=== PATIENT | male | born 1940 | race Caucasian/White ===

== ENCOUNTER → 2018-06-23 | Outpatient (CLI) | payer MEDICARE, BC | END | disposition home or self-care (01) | LOC: RADUSWWP 11:50 | PROVIDERS: ATTEND Physical Medicine & Rehabilitation | DX: S13.4XXD Sprain of ligaments of cervical spine, subsequent encounter (principal); M51.17 Intervertebral disc disorders with radiculopathy, lumbosacral region; M47.27 Other spondylosis with radiculopathy, lumbosacral region; M96.1 Postlaminectomy syndrome, not elsewhere classified; G89.11 Acute pain due to trauma; R53.1 Weakness | CPT/HCPCS: 93922 ==

== ENCOUNTER → 2018-07-28 | Outpatient (CLI) | payer MEDICARE, BC ==
[2018-07-28 15:50] LABS: HCT 41.4 % (39.0-53.0); HGB 13.5 gm/dL (13.0-17.5); MCH 29.6 pg (25.0-35.0); MCHC 32.7 g/dL (31.0-37.0); MCV 90.6 fL (80.0-100.0); Mean Platelet Volume 6.7; Platelet Count 277 k/uL (150-450); RBC 4.57 m/uL (4.30-5.90); RDW 15.8 % (11.5-15.5)
[2018-07-28 16:00] LABS: Anion Gap 11 mmol/L; Blood Urea Nitrogen 25 mg/dL (9-20); Carbon Dioxide 24 mmol/L (22-30); Chloride 104 mmol/L (98-107); Potassium 4.8 mmol/L (3.5-5.1); Sodium 139 mmol/L (137-145)
== END | disposition home or self-care (01) ==
LOC: LABPAT 15:19
PROVIDERS: ATTEND Internal Medicine Interventional Cardiology
DX: Z01.812 Encounter for preprocedural laboratory examination (principal); I70.213 Atherosclerosis of native arteries of extremities with intermittent claudication, bilateral legs
CPT/HCPCS: 36415; 80051; 82565; 84520; 85027

== ENCOUNTER → 2018-08-11 | Day surgery (SDC) | payer MEDICARE, BC ==
[2018-08-08 15:05] VITALS: BMI 35.4
[~2018-08-11] MED LIST: ALPRAZolam 0.25 MG TAB PO PRN; ASPIRIN 325 MG TAB PO STA; HEPARIN SODIUM 1,000 UN/ML (10ML VL) IV ONE; IOPAMIDOL-250 100ML BTL INTRAARTER ONE; IOPAMIDOL-250 50ML BTL INTRAARTER ONE; MIDAZOLAM 2 MG/2 ML VIAL IVP ONE; SODIUM CHLORIDE 0.9% 1,000 ML IV ONE; SODIUM CHLORIDE 0.9% 1,000 ML IV SCH; SODIUM CHLORIDE 0.9% 1,000 ML in EMPTY BAG 1 BAG IV ONE
[2018-08-11 11:38] VITALS: RESP 16; TEMP 98
[2018-08-11] MEDS: LIDOCAINE 1% INJ 10MG/ML (20 ML MDV) SQ ONE ×2 (12:52→12:55)
[2018-08-11] MEDS: VERAPAMIL SYRINGE (5 MG/10 ML) INTRAARTER ONE ×2 (12:55→13:13)
--- NOTE | 2018-08-11 14:33 | AN ---
ANGIOGRAPHY REPORT ABDOMINAL AORTOGRAM AND BILATERAL LOWER EXTREMITY RUNOFF: DATE OF SERVICE: 08/11/2018 PERFORMING PHYSICIAN: Bobby Phillips MD, [employer]. PROCEDURE PERFORMED: 1. An abdominal aortogram. 2. Bilateral lower extremities runoff. INDICATION: This is a pleasant 78-year-old gentleman who was referred for further evaluation of peripheral arterial disease. The patient was experiencing bilateral lower extremities intermittent claudication, severe enough and interfering with his daily activities. The SAMARIA was performed and came into be but abnormal bilaterally. Because of that an abdominal aortogram and bilateral lower extremities runoff was advised. APPROACH: Right radial artery. COMPLICATION: None. LEVEL OF SEDATION: Moderate sedation length of 35 minutes. PROCEDURE DESCRIPTION: After obtaining an informed consent, the patient was brought to cardiac cork slabs sawyer. The right radial artery was cannulated using micropuncture technique and a micropuncture wire passed easily then I placed a 5-Belizean sheath in the right radial artery. After that, I did an abdominal aortogram and bilateral lower extremities runoff using 5- Belizean pigtail catheter was initially placed at the level of the 24-Belizean pigtail catheter which was placed initially at the level of the renal arteries then it was advanced as much as possible to above the bifurcation of the aorta. The procedure was completed without any complication. SELECTIVE PERIPHERAL ANGIOGRAM: 1. The aorta does have a stent graft, which seems to be patent. 2. ILIAC ARTERIES: The right limb of the stentograft is occluded. It reconstitutes by the external iliac artery on the right side. The left limb is patent. 3. EXTERNAL ILIAC ARTERIES: The right external iliac artery is occluded and the left external iliac artery is patent. 4. INTERNAL ILIAC ARTERIES: The right and left internal iliac arteries are patent. 5. COMMON FEMORAL ARTERY: The right common femoral artery is patent and the left common femoral artery is occluded within an occlusion extent from the inguinal ligament still above the bifurcation of the common femoral on the left to SFA and profunda. 6. PROFUNDA: The right and left profunda are patent. 7. SFA: The right and left SFA are patent. 8. POPLITEAL: The right and left popliteal are patent. 9. BELOW THE KNEE: There are 3 vessels without below the knee bilaterally. CONCLUSION: 1. Patent stent graft in the infrarenal aorta. 2. Occluded right limb of the stent graft with occlusion extent to the external iliac artery. 3. Occluded left common femoral artery. 4. Normal superficial femoral artery and popliteal. 5. Three vessel runoff below the knee bilaterally. POSTPROCEDURE MANAGEMENT: 1. Maximize medical treatment at this point of time. 2. I will discuss with the patient the option between percutaneous coronary intervention on the right iliac artery and subsequently left common femoral artery endarterectomy or left common femoral artery endarterectomy with [id number] fem- fem bypass. MMLEONCIO / IJN: [id number] /
[2018-08-11 18:14] VITALS: BP 150/82; PULSE 72
== END ==
LOC: CATHCVL 10:56
PROVIDERS: ATTEND Internal Medicine Interventional Cardiology
DX: I70.213 Atherosclerosis of native arteries of extremities with intermittent claudication, bilateral legs (principal); I71.4 Abdominal aortic aneurysm, without rupture; Z95.828 Presence of other vascular implants and grafts; F17.210 Nicotine dependence, cigarettes, uncomplicated; Z79.82 Long term (current) use of aspirin; Z79.899 Other long term (current) drug therapy
CPT/HCPCS: 36200; 75625; 75716; C1769 ×4; C1894 ×2; C1887; J2250; J2001; J1644; Q9966 ×2

== ENCOUNTER 2018-09-15 11:43 | Inpatient (IN) | payer MEDICARE, BC ==
[2018-09-15] MEDS ORDERED: NALOXONE 0.4 MG/ML 1 ML VIAL IV PRN (13:02)
[2018-09-15 13:35] VITALS: BMI 34.2
[2018-09-15 13:43] LABS: Basophils # (A) 0.1 k/uL (0-0.2); Basophils % (A) 1 %; Eosinophils # (A) 0.1 k/uL (0-0.7); Eosinophils % (A) 1 %; HCT 36.2 % (39.0-53.0); HGB 12.1 gm/dL (13.0-17.5); Lymphocytes # (A) 1.4 k/uL (1.0-4.8); Lymphocytes % (A) 14 %; MCH 30.1 pg (25.0-35.0); MCHC 33.4 g/dL (31.0-37.0); Mean Platelet Volume 6.7; Monocytes # (A) 0.6 k/uL (0-1.0); Monocytes % (A) 6 %; Neutrophils # (A) 7.7 k/uL (1.3-7.7); Neutrophils % (A) 76 %; Platelet Count 314 k/uL (150-450); RBC 4.02 m/uL (4.30-5.90); WBC 10.1 k/uL (3.8-10.6)
[2018-09-15 13:52] LABS: Potassium 3.9 mmol/L (3.5-5.1)
[2018-09-15 13:54] LABS: Albumin 3.6 g/dL (3.5-5.0); Calcium 8.7 mg/dL (8.4-10.2); Total Bilirubin 0.8 mg/dL (0.2-1.3); Total Protein 6.9 g/dL (6.3-8.2)
--- NOTE | 2018-09-15 14:25 | XR ---
EXAMINATION TYPE: XR chest 1V portable DATE OF EXAM: 09/15/2018 COMPARISON: NONE HISTORY: Concern for pneumonia. Shortness of breath. TECHNIQUE: Single frontal view of the chest is obtained. FINDINGS: Patchy left upper lung and left midlung opacities are seen. These may be exaggerated by sl ight patient rotation.e right lung remains clear. Cardia mediastinal silhouette is mildly enlarged. T here is generalized osseous demineralization and degenerative changes of the thoracic spine and shoul ders. No sizable pleural effusion or pneumothorax. IMPRESSION: Ill-defined patchy left upper lung and left midlung opacities that could represent atele ctasis or developing pneumonia. Surveillance exam could be performed.
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
[2018-09-15] MEDS: SODIUM CHLORIDE 0.9% 1,000 ML IV SCH (16:09)
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
[2018-09-15] MEDS ORDERED: AZITHROMYCIN 500 MG in SODIUM CHLORIDE 0.9% 250 ML IVPB STA (17:00)
[2018-09-15 17:28] LABS: Appearance,Urine Clear (Clear); Bilirubin,Urine Negative (Negative); Blood,Urine Negative (Negative); Color,Urine Yellow; Glucose,Urine (UA) Negative (Negative); Hyaline Casts,Urine 1 /lpf (0-2); Ketones,Urine Negative (Negative); Leukocyte Esterase,Urine Trace (Negative); Mucus,Urine Few /hpf; Nitrite,Urine Negative (Negative); PH, Urine 5.5 (5.0-8.0); Protein,Urine Trace (Negative); RBC,Urine 1 /hpf (0-5); Specific Gravity,Urine 1.019 (1.001-1.035)
[2018-09-15] MEDS: ATORVASTATIN 20 MG TAB PO SCH (22:30)
--- NOTE | 2018-09-15 23:00 | P.CONS ---
History of Present Illness - Reason for Consult Consult date: 09/15/18 - Chief Complaint Fever - History of Present Illness 78-year-old male with history of COPD and peripheral vascular disease has a recent history of vascular surgical intervention. Patient has a known history of a endovascular stent graft aortobifemoral in nature. Was having increasing difficult to the lower extremities and consequently underwent angiography recently treated evidence of occlusion in the bilateral lower extremities. Consequently he underwent intervention at an outside hospital. He is having difficulties with some draining to the ulceration to the left groin access site. Right groin has been without significant difficulty. The patient presented for routine evaluation in the vascular office where he was evidence of fever 101, was short of breath and not feeling well. Consequently he was sent to hospital for admission. With concerns pneumonia and the wound the infectious diseases consultation was requested. The patient relates that he's been having ongoing drainage from the site but has been nonpurulent. The pain has not been severe in that area at this time. Review of Systems HEENT:Denies headache or acute visual change. Denies sinus or mouth discomforts. Denies neck stiffness or pain. Denies significant oral cavity pain. Denies difficulty on swallowing. Lungs: He has chronic shortness of breath he has coughed some sputum production but no hemoptysis Cardiovascular: He is denying chest pain but does have shortness of breath denies orthopnea or syncope but does have dyspnea on exertion Gastrointestinal: Denies nausea, vomiting, diarrhea, constipation, hematemesis, melena, hematochezia. No no significant change of bowel habit noticed. Musculoskeletal: denies significant myalgias or arthralgias. No new joint swelling. Denies new back pain. Skin: Draining wound to the left leg at the groin Neuro: Denies headache or visual change. Denies any new onset weakness or difficulty with ambulation. Denies falls or seizures. Psychiatric:Denies anxiety or depression. Endocrine: Denies significant fatigue, denies significant weight loss or weight gain. Past Medical History Past Medical History: Liver Disease, Osteoarthritis (OA), Vascular Disorder Additional Past Medical History / Comment(s): AAA STENT. CRUSHED LLL YEARS AGO. HX PHLEBITIS LEGS . INFECTIOUS HEPATITIS 1969'. LOW BACK PROB - IMPROVED WITH STEROID EPIDURALS. Peripheral artery disease History of Any Multi-Drug Resistant Organisms: None Reported Past Surgical History: Joint Replacement Additional Past Surgical History / Comment(s): PASTORA TOTAL KNEES. ABD AORTIC STENT. ROTATOR CUFFS PASTORA. PASTORA CTR. PROCEDURES FOR BONE SPURS IN BACK; LOWER BACK EPIDURAL INJ. left femoral endarterectomy and left to right fem-fem bypass on 08/31/2018 at [facility] Past Anesthesia/Blood Transfusion Reactions: Previous Problems w/ Anesthesia Additional Past Anesthesia/Blood Transfusion Reaction / Comm: BAD EDWARDS WITH SPINAL. Additional Psychological History / Comment(s): and lives at the and the family home. Retired from [employer]. No experience. No international travel. No animals in the home. Stopped smoking more than 30 years ago. No current significant alcohol use Smoking Status: Former smoker - Past Family History Father Family Medical History: Cancer Additional Family Medical History / Comment(s): THROAT CA Medications and Allergies Home Medications and Allergies Comment(s): Current Medications Acetaminophen (Tylenol Tab) 650 mg PO Q6HR PRN PRN Reason: Mild Pain or Fever > 100.5 Hydrocodone Bitart/Acetaminophen ([place] 5-325) 1 each PO Q4HR PRN PRN Reason: Moderate Pain Albuterol/Ipratropium (Duoneb 0.5 Mg-3 Mg/3 Ml Soln) 3 ml INHALATION RT-QID [facility] Atorvastatin Calcium (Lipitor) 20 mg PO HS [facility] Last Admin: 09/15/18 22:30 Dose: 20 mg Azithromycin (Zithromax) 500 mg PO DAILY@1200 [facility] Clopidogrel Bisulfate (Plavix) 75 mg PO DAILY [facility] Enoxaparin Sodium (Lovenox) 40 mg SQ DAILY [facility] Sodium Chloride (Saline 0.9%) 1,000 mls @ 75 mls/hr IV .[id number] [facility] Last Admin: 09/15/18 16:09 Dose: 75 mls/hr Ceftriaxone Sodium 1,000 mg/ (Sodium Chloride) 50 mls @ 100 mls/hr IVPB Q12HR [facility] Last Admin: 09/15/18 22:31 Dose: 100 mls/hr Multivitamins (Theragran) 1 each PO DAILY [facility] Naloxone HCl (Narcan) 0.2 mg IV Q2M PRN PRN Reason: Opioid Reversal Polyethylene Glycol (Miralax) 17 gm PO DAILY [facility] Home Medications Medication Instructions Recorded Confirmed Type Cinnamon Bark [Cinnamon] 1,000 mg PO DAILY 08/08/18 09/15/18 History Multivitamins, Thera [Multivitamin 1 tab PO DAILY 08/08/18 09/15/18 History (formulary)] [place]-3 Fatty Acids/Fish Oil [Fish 1 cap PO DAILY 08/08/18 09/15/18 History Oil 1,000 mg Softgel] Polyethylene Glycol 3350 [Miralax] 17 gm PO DAILY 08/08/18 09/15/18 History Atorvastatin [Lipitor] 20 mg PO HS 09/15/18 09/15/18 History Clopidogrel [Plavix] 75 mg PO DAILY 09/15/18 09/15/18 History Turmeric Root Extract [Turmeric] 500 mg PO DAILY 09/15/18 09/15/18 History Allergies Allergy/AdvReac Type Severity Reaction Status Date / Time No Known Allergies Allergy Verified 09/15/18 13:07 Physical Exam Vitals: Vital Signs Temp Pulse Pulse Pulse Pulse Resp BP 09/15/18 18:45 98.4 F 93 80 20 130/63 09/15/18 17:18 90 90 75 118/66 09/15/18 15:00 97.8 F 98 120/70 BP BP Pulse Ox 09/15/18 18:45 09/15/18 17:18 121/75 164/74 09/15/18 15:00 89 L Intake and Output 09/15/18 09/15/18 09/15/18 06:59 14:59 22:59 Output Total 300 Balance -300 Output: Urine 300 Other: Voiding Method Urinal Weight 105.233 kg 105.233 kg Pleasant 78-year-old male not in distress but occasionally coughs and relates that he's having some wheezing HEENT: Anicteric conjunctiva are pink and moist nasal mucosa grossly intact without significant lesions, there is no thrush. Neck: The neck is supple without significant lymphadenopathy or thyromegaly. Lungs: There is symmetrical air entry and expiratory wheezes are noted few bronchial sounds are noted in the left anterior upper zone Heart: Regular rate and rhythm with an audible S1-S2, no S3 no S4. There is no significant murmur click or rub, PMI was nondisplaced. Abdomen: Positive bowel sounds soft and nontender without palpable masses or organomegaly. There was no guarding or rebound. Extremities: The upper extremities have excellent pulses they are symmetric, no significant petechiae or telangiectasia. No splinter hemorrhages were noted. The right groin reveals evidence of the surgical intervention generally is healed. The left groin reveals evidence of the open ulceration from the recent surgical intervention. Please see nursing photography for this 1 x 4 x 1 cm ulceration. There is no purulence it is not very tender there is drainage. Neuro: Awake alert oriented to person place and time. There are no acute new gross focal sensory motor deficits. Results CBC & Chem 7: 09/15/18 13:18 09/15/18 13:18 Labs: Abnormal Lab Results - Last 24 Hours (Table) 09/15/18 09/15/18 09/15/18 Range/Units 13:18 13:18 17:00 RBC 4.02 L (4.30-5.90) m/uL Hgb 12.1 L (13.0-17.5) gm/dL Hct 36.2 L (39.0-53.0) % Sodium 133 L (137-145) mmol/L Carbon Dioxide 21 L (22-30) mmol/L BUN 23 H (9-20) mg/dL Glucose 109 H (74-99) mg/dL Urine Protein Trace H (Negative) Ur Leukocyte Esterase Trace H (Negative) Urine Mucus Few H (None) /hpf Laboratory Results WBC 10.1 k/uL (3.8-10.6) 09/15/18 13:18 RBC 4.02 m/uL (4.30-5.90) L 09/15/18 13:18 Hgb 12.1 gm/dL (13.0-17.5) L 09/15/18 13:18 Hct 36.2 % (39.0-53.0) L 09/15/18 13:18 MCV 90.0 fL (80.0-100.0) 09/15/18:18 MCH 30.1 pg (25.0-35.0) 09/15/18 13:18 MCHC 33.4 g/dL (31.0-37.0) 09/15/18 13:18 RDW 15.0 % (11.5-15.5) 09/15/18 13:18 Plt Count 314 k/uL (150-450) 09/15/18 13:18 Neutrophils % 76 % 09/15/18 13:18 Lymphocytes % 14 % 10/25/18 13:18 Monocytes % 6 % 09/15/18 13:18 Eosinophils % 1 % 09/15/18 13:18 Basophils % 1 % 09/15/18 13:18 Neutrophils # 7.7 k/uL (1.3-7.7) 09/15/18 13:18 Lymphocytes # 1.4 k/uL (1.0-4.8) 09/15/18 13:18 Monocytes # 0.6 k/uL (0-1.0) 09/15/18 13:18 Eosinophils # 0.1 k/uL (0-0.7) 09/15/18 13:18 Basophils # 0.1 k/uL (0-0.2) 09/15/18 13:18 Sodium 133 mmol/L (137-145) L 09/15/18 13:18 Potassium 3.9 mmol/L (3.5-5.1) 09/15/18 13:18 Chloride 101 mmol/L (98-107) 09/15/18 13:18 Carbon Dioxide 21 mmol/L (22-30) L 09/15/18 13:18 Anion Gap 11 mmol/L 09/15/18 13:18 BUN 23 mg/dL (9-20) H 09/15/18 13:18 Creatinine 0.97 mg/dL (0.66-1.25) 09/15/18 13:18 Est GFR (CKD-EPI)AfAm 87 (>60 ml/min/1.73 sqM) 09/15/18 13:18 Est GFR (CKD-EPI)NonAf 75 (>60 ml/min/1.73 sqM) 09/15/18 13:18 Glucose 109 mg/dL (74-99) H 09/15/18 13:18 Calcium 8.7 mg/dL (8.4-10.2) 09/15/18 13:18 Magnesium 2.0 mg/dL (1.6-2.3) 09/15/18 13:18 Total Bilirubin 0.8 mg/dL (0.2-1.3) 09/15/18 13:18 AST 22 U/L (17-59) 09/15/18 13:18 ALT 30 U/L (21-72) 09/15/18 13:18 Alkaline Phosphatase 57 U/L (38-126) 09/15/18 13:18 Total Protein 6.9 g/dL (6.3-8.2) 09/15/18 13:18 Albumin 3.6 g/dL (3.5-5.0) 09/15/18 13:18 Urine Color Yellow 09/15/18 17:00 Urine Appearance Clear (Clear) 09/15/18 17:00 Urine pH 5.5 (5.0-8.0) 09/15/18 17:00 Ur Specific [place] 1.019 (1.001-1.035) 09/15/18 17:00 Urine Protein Trace (Negative) H 09/15/18 17:00 Urine Glucose (UA) Negative (Negative) 09/15/18 17:00 Urine Ketones Negative (Negative) 09/15/18 17:00 Urine Blood Negative (Negative) 09/15/18 17:00 Urine Nitrite Negative (Negative) 09/15/18 17:00 Urine Bilirubin Negative (Negative) 09/15/18 17:00 Urine Urobilinogen 2.0 mg/dL (<2.0) 09/15/18 17:00 Ur Leukocyte Esterase Trace (Negative) H 09/15/18 17:00 Urine RBC 1 /hpf (0-5) 09/15/18 17:00 Urine WBC 1 /hpf (0-5) 09/15/18 17:00 Hyaline Casts 1 /lpf (0-2) 09/15/18 17:00 Urine Mucus Few /hpf (None) H 09/15/18 17:00 Influenza Type A RNA Not Detected (Not Detectd) 09/15/18 Unknown Influenza Type B (PCR) Not Detected (Not Detectd) 09/15/18 Unknown Assessment and Plan (1) Left upper lobe pneumonia Narrative/Plan: 78-year-old male presents to Hospital from the vascular surgery office with complaints of fever and not feeling well for several days. The patient relates that he's been having some cough and difficulty breathing his sputum up. His shortness of breath is worse in his baseline. He is without discomforts in his chest. The chest x-rays reviewed that shows evidence of the left upper lobe infiltration, with his history of COPD. Will add in albuterol and Atrovent updraft treatments, continue antibiotic treatments with the Rocephin and azithromycin for now. Fever has improved Wound culture the left groin is requested. Local wound care with therahoney is requested. Antibiotic therapy will be altered depending on some culture results. Patient fortunately is comfortable at this time. Continue with a multivitamin with zinc and ensure adequate protein intake for healing. Current Visit: Yes Status: Acute Code(s): J18.1 - LOBAR PNEUMONIA, UNSPECIFIED ORGANISM SNOMED Code(s): 900746824 (2) Non-healing surgical wound of left groin Current Visit: Yes Status: Acute Code(s): T81.89XA - OTH COMPLICATIONS OF PROCEDURES, NEC, INIT SNOMED Code(s): 785202174
[2018-09-16] MEDS: IPRATROPIUM-ALBUTEROL 3 ML NEB INHALATION SCH ×5 (00:36→20:01)
[2018-09-16] MEDS: ACETAMINOPHEN TAB 325 MG TAB PO PRN ×2 (02:17→20:13)
[2018-09-16] MEDS: SODIUM CHLORIDE 0.9% 1,000 ML IV SCH (04:55)
--- NOTE | 2018-09-16 07:24 | XR ---
EXAMINATION TYPE: XR chest 1V portable DATE OF EXAM: 09/16/2018 HISTORY: Shortness of breath. COMPARISON: 09/15/2018 TECHNIQUE: Single view of the chest is submitted. FINDINGS: Demonstrated are scattered senescent parenchymal change. There is no evidence for focal infiltrate. Coarse interstitial markings persist. Focal nodular densit y left upper lobe is redemonstrated. The heart is stable. Hilar and mediastinal structures are within normal limits. Degenerative changes are seen of the dorsal spine. IMPRESSION: 1. Coarse interstitial markings persist. Focal nodular density left upper lobe is redemonstrated.
[2018-09-16 08:12] LABS: HCT 33.7 % (39.0-53.0); HGB 11.3 gm/dL (13.0-17.5); MCH 29.9 pg (25.0-35.0); MCHC 33.6 g/dL (31.0-37.0); MCV 88.9 fL (80.0-100.0); Mean Platelet Volume 6.9; Platelet Count 299 k/uL (150-450); RBC 3.79 m/uL (4.30-5.90); WBC 14.7 k/uL (3.8-10.6)
[2018-09-16 08:35] LABS: Anion Gap 7 mmol/L; Blood Urea Nitrogen 17 mg/dL (9-20); Calcium 8.2 mg/dL (8.4-10.2); Carbon Dioxide 24 mmol/L (22-30); Chloride 104 mmol/L (98-107); Glucose 122 mg/dL (74-99); Potassium 3.9 mmol/L (3.5-5.1); Sodium 135 mmol/L (137-145)
[2018-09-16] MEDS ORDERED: NON-FORMULARY DRUG (Omega-3 Fatty Acids/Fish Oil [Fish Oil 1,000 Mg Softgel] 1 CAP) PO SCH (09:00)
[2018-09-16] MEDS ORDERED: NON-FORMULARY DRUG (Cinnamon Bark [Cinnamon] 1,000 MG) PO SCH (09:00)
--- NOTE | 2018-09-16 10:37 | P.PN ---
Subjective Progress Note Date: 09/16/18 Principal diagnosis: Fevers Patient is a 78-year-old male with a past medical history of peripheral arterial disease, claudication, phlebitis, and abdominal aortic aneurysm who presented as a direct admission from Dr. Layne's office. 2 weeks ago he underwent a fem-fem bypass with stent placement at [facility]. He then developed a left groin hematoma and had it drained approximately one week ago. He presented to the office today with complaints of fever, myalgia, vomiting and dizziness. Dr. Layne was concerned about possible underlying infection. He requested that we admit the patient for evaluation of possible underlying infection and have Dr. Meza see the patient. Patient had a urinalysis was negative. Chest x-ray showed possible left-sided pneumonia. He was started on Rocephin and Zithromax. Dr. Meza evaluated the patient and added a wound culture. Blood cultures are negative to date. Patient seen and examined at bedside. He is feeling better than yesterday. Dizziness is improved. The shortness of breath is better. He is not having any nausea vomiting or diarrhea. He feels as though his weakness is getting better. Objective - Vital Signs Vital signs: Vital Signs Temp 99.5 F 09/16/18 03:05 Pulse 76 09/16/18 07:32 Resp 26 H 09/15/18 23:00 BP 102/62 09/15/18 23:00 Pulse Ox 96 09/15/18 23:00 Intake & Output 09/15/18 09/16/18 09/16/18 18:59 06:59 18:59 Output Total 300 Balance -300 Weight 105.233 kg Output: Urine 300 Other: Voiding Method Urinal # Voids 1 - Exam General: Ill appearing, no distress, appears at stated age, normal weight Derm: Left groin nonhealing wound with dressing in place, no unusual rashes/ lesions no unusual ecchymoses, warm, dry Head: atraumatic, normocephalic, symmetric Eyes: EOMI, no lid lag, anicteric sclera, pupils equal round reactive to light ENT: Nose and ears atraumatic, no thrush, no pharyngeal erythema Neck: No thyromegaly, no cervical lymphadenopathy, trachea midline, supple Mouth: no lip lesion, mucus membranes moist Cardiovascular: S1S2 reg, no murmur, positive posterior tibial pulse bilateral, no edema, capillary refill less than 2 seconds Lungs: Decreased breath sounds bilateral bases, no rhonchi, no rales , no accessory muscle use Abdominal: soft, nontender to palpation, no guarding, no appreciable organomegaly, normal bowel sounds Ext: no gross muscle atrophy, muscle strength 5 out of 5 in all 4 extremities grossly, no contractures, Neuro: CN II-XI grossly intact, light touch intact all 4 extremities, finger to nose within normal limits, Psych: Alert, oriented, appropriate affect - Labs CBC & Chem 7: 09/16/18 07:53 09/16/18 07:53 Labs: Abnormal Lab Results - Last 24 Hours (Table) 09/15/18 09/15/18 09/15/18 Range/Units 13:18 13:18 17:00 WBC (3.8-10.6) k/uL RBC 4.02 L (4.30-5.90) m/uL Hgb 12.1 L (13.0-17.5) gm/dL Hct 36.2 L (39.0-53.0) % Sodium 133 L (137-145) mmol/L Carbon Dioxide 21 L (22-30) mmol/L BUN 23 H (9-20) mg/dL Glucose 109 H (74-99) mg/dL Calcium (8.4-10.2) mg/dL Urine Protein Trace H (Negative) Ur Leukocyte Esterase Trace H (Negative) Urine Mucus Few H (None) /hpf 09/16/18 09/16/18 Range/Units 07:53 07:53 WBC 14.7 H (3.8-10.6) k/uL RBC 3.79 L (4.30-5.90) m/uL Hgb 11.3 L (13.0-17.5) gm/dL Hct 33.7 L (39.0-53.0) % Sodium 135 L (137-145) mmol/L Carbon Dioxide (22-30) mmol/L BUN (9-20) mg/dL Glucose 122 H (74-99) mg/dL Calcium 8.2 L (8.4-10.2) mg/dL Urine Protein (Negative) Ur Leukocyte Esterase (Negative) Urine Mucus (None) /hpf Assessment and Plan Assessment: Dizziness -Telemetry -Orthostatic vital signs negative -Likely secondary to dehydration -echocardiogram pending Dehydration with hyponatremia, improving -stop IV fluids, encourage PO intake -Repeat blood work in a.m. Probable left-sided pneumonia -Start Zithromax and Rocephin -Possible gram-negative -ID recs appreciated -Sputum culture -Pulmonary hygiene - follow CXR till clear Peripheral arterial disease with recent fem-fem bypass and nonhealing surgical wound the left groin -Management as per Dr. Layne service, pack with dry gauze and change daily, keep leg elevated above the level of his heart Constipation - miralax DVT prophylaxis: Lovenox Discussed with: Patient, , nursing Anticipated discharge date: [address]: Home with home health A total of 35 minutes was spent on the care of this complex patient more than 50 % of the time was spent in counseling and care coordination.
[2018-09-16] MEDS: MULTIVITAMINS, THERA 1 EACH TAB PO SCH (11:07)
[2018-09-16] MEDS: CLOPIDOGREL 75 MG TAB PO SCH (11:07)
[2018-09-16] MEDS: POLYETHYLENE GLYCOL 3350 17 GM POWD.PACK PO SCH (11:08)
--- NOTE | 2018-09-16 11:57 | ECHOF ---
Referral Reason:dizziness, presyncope MEASUREMENTS -------- HEIGHT: 175.3 cm WEIGHT: 105.2 kg BP: RVIDd: 3.0 cm (< 3.3) IVSd: 1.6 cm (0.6 - 1.1) LVIDd: 4.7 cm (3.9 - 5.3) LVPWd: 1.4 cm (0.6 - 1.1) IVSs: 2.0 cm LVIDs: 3.3 cm LVPWs: 1.8 cm LA Diam: 2.7 cm (2.7 - 3.8) LAESV Index (A-L): 23.82 ml/m Ao Diam: 3.9 cm (2.0 - 3.7) AV Cusp: 2.3 cm (1.5 - 2.6) MV EXCURSION: 14.230 mm (> 18.000) MV EF SLOPE: 44 mm/s (70 - 150) EPSS: 1.1 cm MV E Ty: 0.92 m/s MV DecT: 187 ms MV A Ty: 1.01 m/s MV E/A Ratio: 0.91 RAP: 5.00 mmHg RVSP: 27.68 mmHg FINDINGS -------- Sinus rhythm. This was a technically difficult study with suboptimal views. The left ventricular size is normal. There is moderate concentric left ventricular hypertrophy. O verall left ventricular systolic function is normal with, an EF between 55 - 60 %. The right ventricle is normal in size. Normal LA size by volume 22+/-6 ml/m2. The right atrium is normal in size. 5.0mg OF [place] UTLIZED: 2 OR MORE WALL SEGMENTS NOT VISUALIZED. There is mild aortic valve sclerosis. Mild mitral annular calcification present. Mild tricuspid regurgitation present. Right ventricular systolic pressure is normal at < 35 mmHg. The pulmonic valve was not well visualized. The aortic root is dilated measuring 3.9cm. IVC Not well visulized. There is no pericardial effusion. CONCLUSIONS -------- 1. Sinus rhythm. 2. This was a technically difficult study with suboptimal views. 3. The left ventricular size is normal. 4. There is moderate concentric left ventricular hypertrophy. 5. Overall left ventricular systolic function is normal with, an EF between 55 - 60 %. 6. The right ventricle is normal in size. 7. Normal LA size by volume 22+/-6 ml/m2. 8. The right atrium is normal in size. 9. 5.0mg OF Lumason UTLIZED: 2 OR MORE WALL SEGMENTS NOT VISUALIZED. 10. There is mild aortic valve sclerosis. 11. Mild mitral annular calcification present. 12. Mild tricuspid regurgitation present. 13. Right ventricular systolic pressure is normal at < 35 mmHg. 14. The pulmonic valve was not well visualized. 15. The aortic root is dilated measuring 3.9cm. 16. IVC Not well visulized. 17. There is no pericardial effusion. SVP MONETIZATION: Katina Rose RDCS
--- NOTE | 2018-09-16 13:35 | P.PN ---
Progress Note - Text Progress Note Date: 09/16/18 Subjective: Patient still feels a bit weak. He says he feels fairly cold but no obvious fevers Objective: Vital signs stable. Afebrile. WBCs 14,000. Groin shows no surrounding inflammation. The internal aspect of his wound is a little murky looking compared to admission. Assessment: Wound seems a little bit more messy with honey. Plan: We will clean the wound up a bit with a couple of days of half-strength peroxide and plain gauze packing. We will keep him as much with his legs elevated as possible. Continue antibiotics.
[2018-09-16] MEDS: AZITHROMYCIN 500 MG TAB PO SCH (14:08)
[2018-09-16] MEDS: ENOXAPARIN 40 MG/0.4 ML SYRINGE SQ SCH (14:20)
[2018-09-16] MEDS: PIPERACILLIN-TAZOBACTAM 3.375 GM in DEXTROSE/WATER 1 50ML.BAG IVPB SCH (18:39)
[2018-09-16] MEDS: ATORVASTATIN 20 MG TAB PO SCH (20:13)
--- NOTE | 2018-09-16 21:42 | P.PN ---
Subjective Progress Note Date: 09/16/18 78-year-old male with history of COPD and peripheral vascular disease has a recent history of vascular surgical intervention. Patient has a known history of a endovascular stent graft aortobifemoral in nature. Was having increasing difficult to the lower extremities and consequently underwent angiography recently treated evidence of occlusion in the bilateral lower extremities. Consequently he underwent intervention at an outside hospital. He is having difficulties with some draining to the ulceration to the left groin access site. Right groin has been without significant difficulty. The patient presented for routine evaluation in the vascular office where he was evidence of fever 101, was short of breath and not feeling well. Consequently he was sent to hospital for admission. With concerns pneumonia and the wound the infectious diseases consultation was requested. The patient relates that he's been having ongoing drainage from the site but has been nonpurulent. The pain has not been severe in that area at this time. 09/16/2018. The patient is feeling somewhat better today. Shortness of breath and cough improved with starting the respiratory treatments. He is living his fevers improved was 101.3 overnight no 98.3 today. The case is discussed with the hospitalist. There is evidence of gram-negative bacteremia source is likely the left groin which is also showing gram-negative bacilli. Chest x-ray reveals possible pneumonia, the patient's pulmonary symptoms are much improved. Objective - Vital Signs Vital signs: Vital Signs Temp 98.2 F 09/16/18 21:18 Pulse 76 09/16/18 20:14 Resp 20 09/16/18 19:45 BP 112/78 09/16/18 19:45 Pulse Ox 96 09/16/18 15:00 Intake & Output 09/16/18 09/16/18 09/17/18 06:59 18:59 06:59 Output Total 1500 Balance -1500 Output: Urine 1500 Other: # Voids 1 - Exam Pleasant 78-year-old male not in distress but occasionally coughs and relates that he's having some wheezing HEENT: Anicteric conjunctiva are pink and moist nasal mucosa grossly intact without significant lesions, there is no thrush. Neck: The neck is supple without significant lymphadenopathy or thyromegaly. Lungs: There is symmetrical air entry and expiratory wheezes are noted few bronchial sounds are noted in the left anterior upper zone Heart: Regular rate and rhythm with an audible S1-S2, no S3 no S4. There is no significant murmur click or rub, PMI was nondisplaced. Abdomen: Positive bowel sounds soft and nontender without palpable masses or organomegaly. There was no guarding or rebound. Extremities: The upper extremities have excellent pulses they are symmetric, no significant petechiae or telangiectasia. No splinter hemorrhages were noted. The right groin reveals evidence of the surgical intervention generally is healed. The left groin reveals evidence of the open ulceration from the recent surgical intervention. Please see nursing photography for this 1 x 4 x 1 cm ulceration. There is no purulence it is not very tender there is drainage. Neuro: Awake alert oriented to person place and time. There are no acute new gross focal sensory motor deficits. - Labs CBC & Chem 7: 09/16/18 07:53 09/16/18 07:53 Labs: Abnormal Lab Results - Last 24 Hours (Table) 09/16/18 09/16/18 Range/Units 07:53 07:53 WBC 14.7 H (3.8-10.6) k/uL RBC 3.79 L (4.30-5.90) m/uL Hgb 11.3 L (13.0-17.5) gm/dL Hct 33.7 L (39.0-53.0) % Sodium 135 L (137-145) mmol/L Glucose 122 H (74-99) mg/dL Calcium 8.2 L (8.4-10.2) mg/dL Microbiology - Last 24 Hours (Table) 09/15/18 15:30 Blood Culture - Preliminary Blood No Growth after 24 hours 09/15/18 15:45 Blood Culture Gram Stain - Preliminary Blood 09/16/18 02:00 Gram Stain - Preliminary Groin Wound Culture - Preliminary 09/15/18 15:45 Blood Culture - Final Blood Laboratory Results WBC 14.7 k/uL (3.8-10.6) H 09/16/18 07:53 RBC 3.79 m/uL (4.30-5.90) L 09/16/18 07:53 Hgb 11.3 gm/dL (13.0-17.5) L 09/16/18 07:53 Hct 33.7 % (39.0-53.0) L 09/16/18 07:53 MCV 88.9 fL (80.0-100.0) 09/16/18 07:53 MCH 29.9 pg (25.0-35.0) 09/16/18 07:53 MCHC 33.6 g/dL (31.0-37.0) 09/16/18 07:53 RDW 15.0 % (11.5-15.5) 09/16/18 07:53 Plt Count 299 k/uL (150-450) 09/16/18 07:53 Neutrophils % 76 % 09/15/18 13:18 Lymphocytes % 14 % 09/15/18 13:18 Monocytes % 6 % 09/15/18 13:18 Eosinophils % 1 % 09/15/18 13:18 Basophils % 1 % 09/15/18 13:18 Neutrophils # 7.7 k/uL (1.3-7.7) 09/15/18 13:18 Lymphocytes # 1.4 k/uL (1.0-4.8) 09/15/18 13:18 Monocytes # 0.6 k/uL (0-1.0) 09/15/18 13:18 Eosinophils # 0.1 k/uL (0-0.7) 09/15/18 13:18 Basophils # 0.1 k/uL (0-0.2) 09/15/18 13:18 Sodium 135 mmol/L (137-145) L 09/16/18 07:53 Potassium 3.9 mmol/L (3.5-5.1) 09/16/18 07:53 Chloride 104 mmol/L (98-107) 09/16/18 07:53 Carbon Dioxide 24 mmol/L (22-30) 09/16/18 07:53 Anion Gap 7 mmol/L 09/16/18 07:53 BUN 17 mg/dL (9-20) 09/16/18 07:53 Creatinine 0.85 mg/dL (0.66-1.25) 09/16/18 07:53 Est GFR (CKD-EPI)AfAm >90 (>60 ml/min/1.73 sqM) 09/16/18 07:53 Est GFR (CKD-EPI)NonAf 84 (>60 ml/min/1.73 sqM) 09/16/18 07:53 Glucose 122 mg/dL (74-99) H 09/16/18 07:53 Calcium 8.2 mg/dL (8.4-10.2) L 09/16/18 07:53 Magnesium 2.0 mg/dL (1.6-2.3) 09/15/18 13:18 Total Bilirubin 0.8 mg/dL (0.2-1.3) 09/15/18 13:18 AST 22 U/L (17-59) 09/15/18 13:18 ALT 30 U/L (21-72) 09/15/18 13:18 Alkaline Phosphatase 57 U/L (38-126) 09/15/18 13:18 Total Protein 6.9 g/dL (6.3-8.2) 09/15/18 13:18 Albumin 3.6 g/dL (3.5-5.0) 09/15/18 13:18 Urine Color Yellow 09/15/18 17:00 Urine Appearance Clear (Clear) 09/15/18 17:00 Urine pH 5.5 (5.0-8.0) 09/15/18 17:00 Ur Specific [place] 1.019 (1.001-1.035) 09/15/18 17:00 Urine Protein Trace (Negative) H 09/15/18 17:00 Urine Glucose (UA) Negative (Negative) 09/15/18 17:00 Urine Ketones Negative (Negative) 09/15/18 17:00 Urine Blood Negative (Negative) 09/15/18 17:00 Urine Nitrite Negative (Negative) 09/15/18 17:00 Urine Bilirubin Negative (Negative) 09/15/18 17:00 Urine Urobilinogen 2.0 mg/dL (<2.0) 09/15/18 17:00 Ur Leukocyte Esterase Trace (Negative) H 09/15/18 17:00 Urine RBC 1 /hpf (0-5) 09/15/18 17:00 Urine WBC 1 /hpf (0-5) 09/15/18 17:00 Hyaline Casts 1 /lpf (0-2) 09/15/18 17:00 Urine Mucus Few /hpf (None) H 09/15/18 17:00 Influenza Type A RNA Not Detected (Not Detectd) 09/15/18 Unknown Influenza Type B (PCR) Not Detected (Not Detectd) 09/15/18 Unknown Microbiology 09/15/18 15:30 Blood Blood Culture - Preliminary No Growth after 24 hours 09/15/18 15:45 Blood Blood Culture Gram Stain - Preliminary 09/16/18 02:00 Groin Gram Stain - Preliminary 09/16/18 02:00 Groin Wound Culture - Preliminary 09/15/18 15:45 Blood Blood Culture - Final Assessment and Plan (1) Left upper lobe pneumonia Narrative/Plan: 78-year-old male presents to Hospital from the vascular surgery office with complaints of fever and not feeling well for several days. The patient relates that he's been having some cough and difficulty breathing his sputum up. His shortness of breath is worse in his baseline. He is without discomforts in his chest. The chest x-rays reviewed that shows evidence of the left upper lobe infiltration, with his history of COPD. Will add in albuterol and Atrovent updraft treatments, continue antibiotic treatments with the Rocephin and azithromycin for now. Fever has improved Wound culture the left groin is requested. Local wound care with therahoney is requested. Antibiotic therapy will be altered depending on some culture results. Patient fortunately is comfortable at this time. Continue with a multivitamin with zinc and ensure adequate protein intake for healing. 09/16/2018 case is discussed with the hospitalist. With the gram-negative bacteremia in fact he's been hospitalized at outside facility Rocephin was transitioned to piperacillin tazobactam until further culture results are available. Fortunately clinically he is improved after hydration and antibiotic therapy and local wound care to the left groin. The case is discussed with his who was present and if needed for outpatient intravenous antibiotic therapy at home she be willing to participate in this process. If this time await the final cultures to direct antibiotic therapy and then make plans for his outpatient antibiotic therapy. He is tolerating the current local wound care with therahoney. As he improves and infection improves may be a candidate for negative pressure therapy. Await follow-up blood cultures to ensure this clearance of the bacteremia, if it clears rapidly within be much less likely that there is any graft infection. Current Visit: Yes Status: Acute Code(s): J18.1 - LOBAR PNEUMONIA, UNSPECIFIED ORGANISM SNOMED Code(s): 911479556 (2) Non-healing surgical wound of left groin Current Visit: Yes Status: Acute Code(s): T81.89XA - OTH COMPLICATIONS OF PROCEDURES, NEC, INIT SNOMED Code(s): 492940194
[2018-09-17] MEDS: PIPERACILLIN-TAZOBACTAM 3.375 GM in DEXTROSE/WATER 1 50ML.BAG IVPB SCH ×4 (01:06→23:53)
[2018-09-17] MEDS: HYDROcodone/APAP 5-325MG 1 EACH TAB PO PRN ×2 (01:06→21:54)
[2018-09-17] MEDS: SODIUM CHLORIDE 0.9% 1,000 ML IV SCH (01:07)
[2018-09-17 07:57] LABS: HCT 30.9 % (39.0-53.0); HGB 10.4 gm/dL (13.0-17.5); MCH 29.8 pg (25.0-35.0); MCHC 33.7 g/dL (31.0-37.0); MCV 88.5 fL (80.0-100.0); Mean Platelet Volume 6.9; Platelet Count 306 k/uL (150-450); RBC 3.49 m/uL (4.30-5.90); WBC 11.3 k/uL (3.8-10.6)
[2018-09-17] MEDS: IPRATROPIUM-ALBUTEROL 3 ML NEB INHALATION SCH ×4 (08:07→21:21)
[2018-09-17 08:09] LABS: Anion Gap 9 mmol/L; Blood Urea Nitrogen 16 mg/dL (9-20); Calcium 8.2 mg/dL (8.4-10.2); Carbon Dioxide 23 mmol/L (22-30); Chloride 105 mmol/L (98-107); Glucose 104 mg/dL (74-99); Sodium 137 mmol/L (137-145)
[2018-09-17] MEDS: CLOPIDOGREL 75 MG TAB PO SCH (10:39)
[2018-09-17] MEDS: MULTIVITAMINS, THERA 1 EACH TAB PO SCH (10:39)
[2018-09-17] MEDS: POLYETHYLENE GLYCOL 3350 17 GM POWD.PACK PO SCH (10:40)
--- NOTE | 2018-09-17 11:41 | P.PN ---
Subjective Progress Note Date: 09/17/18 Principal diagnosis: Left groin non-healing wound. PAD, recent left femoral endarterectomy and left to right fem-fem bypass on 08/31/2018, AAA status post aortic stent graft placed in 2013, previous tobacco dependence. Patient states he is feeling much better, much less short of breath. States he has been keeping his legs elevated as instructed except to go to the bathroom and to eat. No new complaints. is at the bedside. Objective - Vital Signs Vital signs: Vital Signs Temp 99.6 F 09/17/18 01:09 Pulse 76 09/17/18 11:22 Resp 18 09/17/18 01:09 BP 117/71 09/17/18 01:09 Pulse Ox 93 L 09/17/18 01:09 Intake & Output 09/16/18 09/17/18 09/17/18 18:59 06:59 18:59 Intake Total 50 240 Output Total 1500 Balance -1500 50 240 Intake: Intake, IV Titration 50 Amount Piperacillin-Tazobactam 3 50 .375 gm In Dextrose/Water 1 50ml.bag @ 12.5 mls/hr IVPB Q8HR [facility] Rx#: [id number] Oral 240 Output: Urine 1500 Other: # Voids 1 - Constitutional General appearance: Present: cooperative, no acute distress, obese - Respiratory Details: Lungs sounds clear bilaterally. Respirations even, nonlabored. Currently on room air with oxygen saturation 93%. - Cardiovascular Details: S1, S2 present. Regular rate and rhythm, sinus rhythm on telemetry. Palpable peripheral pulses bilaterally. No edema present. No calf pain or tenderness noted. - Gastrointestinal Gastrointestinal Comment(s): Abdomen soft, nontender, nondistended. Active bowel sounds present 4 quadrants. Tolerating diet. - Genitourinary Genitourinary Comment(s): Continues to void clear, yellow urine. - Integumentary Integumentary Comment(s): Skin is warm and dry with evidence of good perfusion. Left groin wound assessed , cleaned with half-strength hydrogen peroxide, packed with Kerlix and covered with 4 x 4. There was a significant amount of serous drainage on the packing pulled out of the wound but no appearance of purulence. - Neurologic Neurologic: Present: CNII-XII intact - Musculoskeletal Musculoskeletal: Present: gait normal, strength equal bilaterally - Psychiatric Psychiatric: Present: A&O x's 3, appropriate affect, intact judgment & insight - Allied health notes Allied health notes reviewed: nursing - Labs CBC & Chem 7: 09/17/18 06:59 09/17/18 06:59 Labs: Abnormal Lab Results - Last 24 Hours (Table) 09/17/18 09/17/18 Range/Units 06:59 06:59 WBC 11.3 H (3.8-10.6) k/uL RBC 3.49 L (4.30-5.90) m/uL Hgb 10.4 L (13.0-17.5) gm/dL Hct 30.9 L (39.0-53.0) % Glucose 104 H (74-99) mg/dL Calcium 8.2 L (8.4-10.2) mg/dL Microbiology - Last 24 Hours (Table) 09/16/18 02:00 Gram Stain - Preliminary Groin Wound Culture - Preliminary Gram Neg Bacilli Gram Neg Bacilli#2 Group D Enterococcus 09/15/18 15:45 Blood Culture Gram Stain - Preliminary Blood Blood Culture - Preliminary Pseudomonas spec 09/15/18 15:30 Blood Culture - Preliminary Blood No Growth after 24 hours 09/15/18 15:45 Blood Culture - Final Blood Assessment and Plan (1) Non-healing surgical wound of left groin Current Visit: Yes Status: Acute Code(s): T81.89XA - [facility] COMPLICATIONS OF PROCEDURES, NEC, INIT SNOMED Code(s): 651368164 Plan: 1. Continue to clean the wound with half strength peroxide twice daily, pack with Kerlix, covered with 4 x 4's. 2. Elevate lower extremities above the level of the heart at all times except when eating or toileting. 3. Blood cultures positive for Pseudomonas, wound cultures positive for gram- negative bacilli. Dr. Layne aware. 4. Antibiotics per infectious disease. 5. Medical management per primary care service. Time with Patient: Greater than 30
[2018-09-17] MEDS ORDERED: DOCUSATE 100 MG CAP PO PRN (12:50)
[2018-09-17] MEDS: ACETAMINOPHEN TAB 325 MG TAB PO PRN (13:44)
[2018-09-17] MEDS: AZITHROMYCIN 500 MG TAB PO SCH (13:45)
--- NOTE | 2018-09-17 15:30 | P.PN ---
Subjective Progress Note Date: 09/17/18 Principal diagnosis: Fevers Patient is a 78-year-old male with a past medical history of peripheral arterial disease, claudication, phlebitis, and abdominal aortic aneurysm who presented as a direct admission from Dr. Layne's office. 2 weeks ago he underwent a fem-fem bypass with stent placement at [facility]. He then developed a left groin hematoma and had it drained approximately one week ago. He presented to the office today with complaints of fever, myalgia, vomiting and dizziness. Dr. Layne was concerned about possible underlying infection. He requested that we admit the patient for evaluation of possible underlying infection and have Dr. Meza see the patient. Patient had a urinalysis was negative. Chest x-ray showed possible left-sided pneumonia. He was started on Rocephin and Zithromax. Dr. Meza evaluated the patient and added a wound culture. Blood culture grew pseudomonas and wound culture is growing multiple organisms. Patient seen and examined at bedside. He complains of pain in the left knee, worse when bearing weight, no fluid/warmth. Hx of arthritis and knee replacement. No chest pain, SOB, or nausea. No diarrhea. Still concerned with constipation. Coloace will be added. present at bedside. All questions answered. Objective - Vital Signs Vital signs: Vital Signs Temp 99.6 F 09/17/18 01:09 Pulse 76 09/17/18 11:35 Resp 18 09/17/18 01:09 BP 117/71 09/17/18 01:09 Pulse Ox 93 L 09/17/18 01:09 Intake & Output 09/16/18 09/17/18 09/17/18 18:59 06:59 18:59 Intake Total 50 480 Output Total 1500 Balance -1500 50 480 Intake: Intake, IV Titration 50 Amount Piperacillin-Tazobactam 3 50 .375 gm In Dextrose/Water 1 50ml.bag @ 12.5 mls/hr IVPB Q8HR [facility] Rx#: [id number] Oral 480 Output: Urine 1500 Other: # Voids 1 - Exam General: Ill appearing, no distress, appears at stated age, normal weight Derm: no unusual rashes/lesions no unusual ecchymoses, warm, dry Head: atraumatic, normocephalic, symmetric Eyes: EOMI, no lid lag, anicteric sclera Mouth: no lip lesion, mucus membranes moist Cardiovascular: S1S2 reg, no murmur, positive posterior tibial pulse bilateral, no edema Lungs: Decreased breath sounds bilateral bases, no rhonchi, no rales , no accessory muscle use Abdominal: soft, nontender to palpation, no guarding, no appreciable organomegaly, normal bowel sounds Ext: Left knee tender to palpation medial joint, fluid lateral knee, no warmth, no errythema. no gross muscle atrophy, Psych: Alert, oriented, appropriate affect - Labs CBC & Chem 7: 09/17/18 06:59 09/17/18 06:59 Labs: Abnormal Lab Results - Last 24 Hours (Table) 09/17/18 09/17/18 Range/Units 06:59 06:59 WBC 11.3 H (3.8-10.6) k/uL RBC 3.49 L (4.30-5.90) m/uL Hgb 10.4 L (13.0-17.5) gm/dL Hct 30.9 L (39.0-53.0) % Glucose 104 H (74-99) mg/dL Calcium 8.2 L (8.4-10.2) mg/dL Microbiology - Last 24 Hours (Table) 09/16/18 12:04 Blood Culture - Preliminary Blood No Growth after 24 hours 09/16/18 02:00 Gram Stain - Preliminary Groin Wound Culture - Preliminary Gram Neg Bacilli Gram Neg Bacilli#2 Group D Enterococcus 09/15/18 15:45 Blood Culture Gram Stain - Preliminary Blood Blood Culture - Preliminary Pseudomonas spec 09/15/18 15:30 Blood Culture - Preliminary Blood No Growth after 24 hours 09/15/18 15:45 Blood Culture - Final Blood Assessment and Plan Assessment: Pseudomonas bacteremia - Zosyn, await further culture results - Repat ABX negative to date - ID recs appreciated, plan will be for home antibiotics. - wound cultures pending Left knee pain - concern for septic arthritis - check CT knee - monitor for developing effusion - pain control Left-sided pneumonia -zithromax and zosyn -Possible gram-negative -ID recs appreciated -Sputum culture -Pulmonary hygiene - follow CXR till clear Peripheral arterial disease with recent fem-fem bypass and nonhealing surgical wound the left groin -Management as per Dr. Layne service - pain control Constipation - miralax - colace Dehydration with hyponatremia, resolved DVT prophylaxis: Lovenox Discussed with: Patient, , nursing Anticipated discharge date: [address]: Home with home health A total of 35 minutes was spent on the care of this complex patient more than 50 % of the time was spent in counseling and care coordination.
--- NOTE | 2018-09-17 15:59 | CT ---
EXAMINATION TYPE: CT knee LT w con DATE OF EXAM: 09/17/2018 COMPARISON: None HISTORY: left knee pain and swelling CT DLP: 358.3 mGycm Automated exposure control for dose reduction was used. CONTRAST: Performed with IV Contrast, patient injected with 100 mL of Isovue 300. FINDINGS: There is left knee prosthesis. Exam is limited by metal artifact. There is mild knee joint effusion. I see no fracture nor dislocation. Prosthesis components appear in anatomic position. Patella is obsc ured by metal artifact. There is vascular calcification. IMPRESSION: LIMITED EXAM. NO FRACTURE SEEN. KNEE JOINT EFFUSION.
[2018-09-17] MEDS: ATORVASTATIN 20 MG TAB PO SCH (21:55)
[2018-09-17] MEDS: ENOXAPARIN 40 MG/0.4 ML SYRINGE SQ SCH (22:38)
[2018-09-18 07:26] LABS: HCT 30.8 % (39.0-53.0); HGB 10.3 gm/dL (13.0-17.5); MCH 29.6 pg (25.0-35.0); MCHC 33.3 g/dL (31.0-37.0); MCV 88.8 fL (80.0-100.0); Platelet Count 333 k/uL (150-450); RBC 3.47 m/uL (4.30-5.90); WBC 11.4 k/uL (3.8-10.6)
[2018-09-18 07:42] LABS: Anion Gap 9 mmol/L; Blood Urea Nitrogen 15 mg/dL (9-20); Calcium 8.4 mg/dL (8.4-10.2); Carbon Dioxide 24 mmol/L (22-30); Chloride 105 mmol/L (98-107); Glucose 105 mg/dL (74-99); Potassium 4.3 mmol/L (3.5-5.1); Sodium 138 mmol/L (137-145)
[2018-09-18] MEDS: IPRATROPIUM-ALBUTEROL 3 ML NEB INHALATION SCH ×2 (07:49→11:22)
[2018-09-18] MEDS: POLYETHYLENE GLYCOL 3350 17 GM POWD.PACK PO SCH (10:08)
[2018-09-18] MEDS: MULTIVITAMINS, THERA 1 EACH TAB PO SCH (10:08)
[2018-09-18] MEDS: CLOPIDOGREL 75 MG TAB PO SCH (10:08)
[2018-09-18] MEDS: PIPERACILLIN-TAZOBACTAM 3.375 GM in DEXTROSE/WATER 1 50ML.BAG IVPB SCH ×2 (10:08→16:58)
[2018-09-18] MEDS: ENOXAPARIN 40 MG/0.4 ML SYRINGE SQ SCH (10:23)
[2018-09-18] MEDS: HYDROcodone/APAP 5-325MG 1 EACH TAB PO PRN (10:29)
[2018-09-18 11:21] VITALS: TEMP 98.7
[2018-09-18] MEDS ORDERED: LIDOCAINE 2% INJ 20 MG/ML (20 ML MDV) SQ STA ×2 (11:23→11:37)
[2018-09-18] MEDS ORDERED: IPRATROPIUM-ALBUTEROL 3 ML NEB INHALATION PRN (11:44)
[2018-09-18] MEDS ORDERED: FLUTICASONE 50MCG/SPRAY NASAL 16GM EA NOSTRIL SCH (11:45)
--- NOTE | 2018-09-18 11:58 | P.PN ---
Subjective Progress Note Date: 09/18/18 Principal diagnosis: Fevers Patient is a 78-year-old male with a past medical history of peripheral arterial disease, claudication, phlebitis, and abdominal aortic aneurysm who presented as a direct admission from Dr. Layne's office. 2 weeks ago he underwent a fem-fem bypass with stent placement at [facility]. He then developed a left groin hematoma and had it drained approximately one week ago. He presented to the office today with complaints of fever, myalgia, vomiting and dizziness. Dr. Layne was concerned about possible underlying infection. He requested that we admit the patient for evaluation of possible underlying infection and have Dr. Meza see the patient. Patient had a urinalysis was negative. Chest x-ray showed possible left-sided pneumonia. He was started on Rocephin and Zithromax. Dr. Meza evaluated the patient and added a wound culture. Blood culture grew pseudomonas and wound culture is growing multiple organisms. He developed left knee pain and joint effusion, CT showed mild effusion. Concern is for septic arthritis. Patient seen and examined at bedside. He continues to have left-sided knee pain , slightly worse than yesterday. He is still feeling a lot of stiffness in that knee. His constipation is resolved. No chest pain, no shortness of breath , no nausea. Objective - Vital Signs Vital signs: Vital Signs Temp 98.7 F 09/18/18 08:50 Pulse 87 09/18/18 08:50 Resp 18 09/18/18 08:50 BP 117/68 09/17/18 21:43 Pulse Ox 97 09/18/18 08:50 Intake & Output 09/17/18 09/18/18 09/18/18 18:59 06:59 18:59 Intake Total 480 180 222 Output Total 950 Balance 480 -770 222 Weight 105.233 kg Intake: Oral 480 180 222 Output: Urine 950 Other: # Voids 1 - Exam General: Ill appearing, no distress, appears at stated age, normal weight Derm: wound left going with drainage, no unusual rashes/lesions no unusual ecchymoses, warm, dry Head: atraumatic, normocephalic, symmetric Eyes: EOMI, no lid lag, anicteric sclera Mouth: no lip lesion, mucus membranes moist Cardiovascular: S1S2 reg, no murmur, positive posterior tibial pulse bilateral, no edema Lungs: CTA bilateral, no rhonchi, no rales , no accessory muscle use Abdominal: soft, nontender to palpation, no guarding, no appreciable organomegaly, normal bowel sounds Ext: Left knee tender to palpation medial joint, fluid lateral knee, no warmth, + errythema lateral knee. no gross muscle atrophy, Psych: Alert, oriented, appropriate affect - Labs CBC & Chem 7: 09/18/18 06:41 09/18/18 06:41 Labs: Abnormal Lab Results - Last 24 Hours (Table) 09/18/18 09/18/18 Range/Units 06:41 06:41 WBC 11.4 H (3.8-10.6) k/uL RBC 3.47 L (4.30-5.90) m/uL Hgb 10.3 L (13.0-17.5) gm/dL Hct 30.8 L (39.0-53.0) % Glucose 105 H (74-99) mg/dL Microbiology - Last 24 Hours (Table) 09/17/18 06:59 Blood Culture - Preliminary Blood No Growth after 24 hours 09/17/18 07:04 Blood Culture - Preliminary Blood No Growth after 24 hours 09/15/18 15:45 Blood Culture Gram Stain - Final Blood Blood Culture - Final Pseudomonas aeruginosa 09/15/18 15:30 Blood Culture - Preliminary Blood No Growth after 48 hours 09/16/18 12:04 Blood Culture - Preliminary Blood No Growth after 24 hours 09/16/18 02:00 Gram Stain - Preliminary Groin Wound Culture - Preliminary Gram Neg Bacilli Gram Neg Bacilli#2 Group D Enterococcus Assessment and Plan Assessment: Pseudomonas bacteremia - Zosyn, await further culture results negative to date - Repat ABX negative to date - ID recs appreciated, plan will be for home antibiotics. - wound cultures pending Peripheral arterial disease with recent fem-fem bypass and nonhealing surgical wound the left groin, drowing enterococcus - continue with ABX - await final culture -Management as per Dr. Layne service - pain control Left knee pain - concern for septic arthritis, CT with joint effusion. D/W ortho and will preform arthrocentesis - pain control Left-sided pneumonia -zithromax and zosyn -Possible gram-negative -ID recs appreciated -Sputum culture -Pulmonary hygiene - follow CXR till clear Constipation - miralax - colace Dehydration with hyponatremia, resolved DVT prophylaxis: Lovenox Discussed with: Patient, , nursing Anticipated discharge date: 48-[address]: Home with home health A total of 35 minutes was spent on the care of this complex patient more than 50 % of the time was spent in counseling and care coordination.
--- NOTE | 2018-09-18 12:17 | P.CNOR ---
History of Present Illness - [facility] Consult date: 09/18/18 Consult reason: joint pain (Left knee) History of present illness: This is a 70-year-old male admitted with fever and chills and infected graft to the left leg. He has history of recent fem-fem bypass to the left lower extremity with extreme anemia. Cultures of the graft are pending. He developed an effusion to the left knee over the past couple of days. He complains of increased pain and stiffness to the knee. He has history of total left knee arthroplasty approximately 25 years ago. He states that he did have an infection of the left knee 20 years ago. He states that he did not have revision of his implants at that time. We're consulted for orthopedic evaluation of the left knee. Past Medical History Past Medical History: Liver Disease, Osteoarthritis (OA), Vascular Disorder Additional Past Medical History / Comment(s): AAA STENT. CRUSHED LLL YEARS AGO. HX PHLEBITIS LEGS . INFECTIOUS HEPATITIS . LOW BACK PROB - IMPROVED WITH STEROID EPIDURALS. Peripheral artery disease History of Any Multi-Drug Resistant Organisms: None Reported Past Surgical History: Joint Replacement Additional Past Surgical History / Comment(s): PASTORA TOTAL KNEES. ABD AORTIC STENT. ROTATOR CUFFS PASTORA. PASTORA CTR. PROCEDURES FOR BONE SPURS IN BACK; LOWER BACK EPIDURAL INJ. left femoral endarterectomy and left to right fem-fem bypass on 08/31/2018 at [facility] Past Anesthesia/Blood Transfusion Reactions: Previous Problems w/ Anesthesia Additional Past Anesthesia/Blood Transfusion Reaction / Comm: BAD EDWARDS WITH SPINAL. Additional Psychological History / Comment(s): and lives at the and the family home. Retired from [employer]. No experience. No international travel. No animals in the home. Stopped smoking more than 30 years ago. No current significant alcohol use Smoking Status: Former smoker - Past Family History Father Family Medical History: Cancer Additional Family Medical History / Comment(s): THROAT CA Medications and Allergies Home Medications Medication Instructions Recorded Confirmed Type Cinnamon Bark [Cinnamon] 1,000 mg PO DAILY 08/08/18 09/15/18 History Multivitamins, Thera [Multivitamin 1 tab PO DAILY 08/08/18 09/15/18 History (formulary)] [place]-3 Fatty Acids/Fish Oil [Fish 1 cap PO DAILY 08/08/18 09/15/18 History Oil 1,000 mg Softgel] Polyethylene Glycol 3350 [Miralax] 17 gm PO DAILY 08/08/18 09/15/18 History Atorvastatin [Lipitor] 20 mg PO HS 09/15/18 09/15/18 History Clopidogrel [Plavix] 75 mg PO DAILY 09/15/18 09/15/18 History Turmeric Root Extract [Turmeric] 500 mg PO DAILY 09/15/18 09/15/18 History Allergies Allergy/AdvReac Type Severity Reaction Status Date / Time No Known Allergies Allergy Verified 09/15/18 13:07 Physical Examination This is a pleasant 78-year-old male in no acute distress. He is alert and oriented 3. Exam of the left knee reveals a 23+ effusion. There is no erythema or ecchymosis. He has multiple healed scars about the anterior aspect of his knee. He has limited knee motion secondary to pain. He has full foot and ankle motion without difficulty or pain. Neurovascular status to the lower extremity is intact. Results Computed tomography scan of the left knee is difficult to read secondary to metallic interference. - Labs Labs: Abnormal Lab Results - Last 24 Hours (Table) 09/18/18 09/18/18 Range/Units 06:41 06:41 WBC 11.4 H (3.8-10.6) k/uL RBC 3.47 L (4.30-5.90) m/uL Hgb 10.3 L (13.0-17.5) gm/dL Hct 30.8 L (39.0-53.0) % Glucose 105 H (74-99) mg/dL Microbiology - Last 24 Hours (Table) 09/17/18 06:59 Blood Culture - Preliminary Blood No Growth after 24 hours 09/17/18 07:04 Blood Culture - Preliminary Blood No Growth after 24 hours 09/15/18 15:45 Blood Culture Gram Stain - Final Blood Blood Culture - Final Pseudomonas aeruginosa 09/15/18 15:30 Blood Culture - Preliminary Blood No Growth after 48 hours 09/16/18 12:04 Blood Culture - Preliminary Blood No Growth after 24 hours 09/16/18 02:00 Gram Stain - Preliminary Groin Wound Culture - Preliminary Gram Neg Bacilli Gram Neg Bacilli#2 Group D Enterococcus H & H 09/15/18 09/16/18 09/17/18 Range/Units 13:18 07:53 06:59 Hgb 12.1 L 11.3 L 10.4 L (13.0-17.5) gm/dL Hct 36.2 L 33.7 L 30.9 L (39.0-53.0) % 09/18/18 Range/Units 06:41 Hgb 10.3 L (13.0-17.5) gm/dL Hct 30.8 L (39.0-53.0) % Result Diagrams: 09/18/18 06:41 09/18/18 06:41 Assessment and Plan (1) Effusion, left knee Current Visit: Yes Status: Acute Code(s): M25.462 - EFFUSION, LEFT KNEE SNOMED Code(s): 860005733 (2) History of total left knee replacement Current Visit: Yes Status: Acute Code(s): Z96.652 - PRESENCE OF LEFT ARTIFICIAL KNEE JOINT SNOMED Code(s): 0588383598047 (3) Bacteremia due to Pseudomonas Current Visit: Yes Status: Acute Code(s): R78.81 - BACTEREMIA SNOMED Code( s): 9441092 (4) Non-healing surgical wound of left groin Current Visit: Yes Status: Acute Code(s): T81.89XA - OTH COMPLICATIONS OF PROCEDURES, NEC, INIT SNOMED Code(s): 502601996 Plan: The clinical findings are discussed with the patient and his . His recommended he have aspiration of the knee for fluid analysis. Procedure: The knee was prepped with ChloraPrep and anesthetized with 2% lidocaine. The knee is then aspirated using sterile technique, obtaining a proximally 40 mL of dark brown cloudy fluid. The patient tolerated the aspiration well. The fluid is sent for culture and sensitivity, cell count and crystal identification. Continue current antibiotics. We will make patient nothing by mouth after midnight tonight for possible arthroscopic irrigation and debridement tomorrow if indicated by the fluid analysis. We will continue to follow.
--- NOTE | 2018-09-18 12:43 | P.WNDSOAP ---
Subjective Progress Note Date: 09/18/18 Principal diagnosis: Nonhealing left groin wound Nurse practitioner no reviewed and accepted and signed. Patient feels much better today. Less weakness and no fevers or chills. Objective - Vital Signs Vital signs: Vital Signs Temp 98.7 F 09/18/18 08:50 Pulse 87 09/18/18 08:50 Resp 18 09/18/18 08:50 BP 117/68 09/17/18 21:43 Pulse Ox 97 09/18/18 08:50 Intake & Output 09/17/18 09/18/18 09/18/18 18:59 06:59 18:59 Intake Total 480 180 222 Output Total 950 Balance 480 -770 222 Weight 105.233 kg Intake: Oral 480 180 222 Output: Urine 950 Other: # Voids 1 - Exam Still a fair amount of serous drainage. Wound is much frame cleaner than previous. On palpation it feels that there is tissue over the area of the anastomosis. - Labs CBC & Chem 7: 09/18/18 06:41 09/18/18 06:41 Labs: Abnormal Lab Results - Last 24 Hours (Table) 09/18/18 09/18/18 Range/Units 06:41 06:41 WBC 11.4 H (3.8-10.6) k/uL RBC 3.47 L (4.30-5.90) m/uL Hgb 10.3 L (13.0-17.5) gm/dL Hct 30.8 L (39.0-53.0) % Glucose 105 H (74-99) mg/dL Microbiology - Last 24 Hours (Table) 09/17/18 06:59 Blood Culture - Preliminary Blood No Growth after 24 hours 09/17/18 07:04 Blood Culture - Preliminary Blood No Growth after 24 hours 09/15/18 15:45 Blood Culture Gram Stain - Final Blood Blood Culture - Final Pseudomonas aeruginosa 09/15/18 15:30 Blood Culture - Preliminary Blood No Growth after 48 hours 09/16/18 12:04 Blood Culture - Preliminary Blood No Growth after 24 hours 09/16/18 02:00 Gram Stain - Preliminary Groin Wound Culture - Preliminary Gram Neg Bacilli Gram Neg Bacilli#2 Group D Enterococcus Assessment and Plan (1) Non-healing surgical wound of left groin Current Visit: Yes Status: Acute Code(s): T81.89XA - OTH COMPLICATIONS OF PROCEDURES, NEC, INIT SNOMED Code(s): 022759464 Plan: There has been significant improvement in the patient's general physiologic health and in the wound itself. We will continue with half-strength peroxide and dressing changes for now. Continue with IV antibiotics. Change dressings as often as needed to keep the area dry.
--- NOTE | 2018-09-18 12:59 | XR ---
EXAMINATION TYPE: XR knee complete LT , 3 VIEWS DATE OF EXAM ORDERED: 09/18/2018 HISTORY: TKA w possible septic arthritis. COMPARISON: None. FINDINGS: There is a left knee joint prosthesis in place. The prosthetic appears in good position. T here is a screw transfixing tibial tubercle. There is a mild periosteal reaction involving the distal femur. This may be secondary to the prosthesis. No acute fracture or dislocation is seen. There is v ascular calcification present. The patella appears diastased. IMPRESSION: 1. STATUS POST LEFT KNEE ARTHROPLASTY. 2. APPARENT DIASTASES OF THE PATELLA. 3. NO ACUTE OSSEOUS LESION.
[2018-09-18] MEDS: AZITHROMYCIN 500 MG TAB PO SCH (13:16)
[2018-09-18 13:48] LABS: Color,BF Brown
[2018-09-18 13:49] LABS: Appearance,BF Cloudy; Nucleated Cells, Body Fluid 6800 /uL; RBC, Body Fluid 12100 /uL
[2018-09-18 13:51] LABS: Mononuclear WBC,Body Fluid 18 %; Polynuclear WBC,Body Fluid 82 %; Total Cells Counted,Body Fluid 100
[2018-09-18 16:58] VITALS: RESP 16
[2018-09-18 17:16] VITALS: PULSE 78
[2018-09-18 19:00] LABS: Basophils # (A) 0.1 k/uL (0-0.2); Basophils % (A) 1 %; Eosinophils # (A) 0.4 k/uL (0-0.7); Eosinophils % (A) 4 %; HCT 32.2 % (39.0-53.0); HGB 10.2 gm/dL (13.0-17.5); Hypochromasia Slight; Lymphocytes % (A) 17 %; MCH 29.2 pg (25.0-35.0); MCHC 31.8 g/dL (31.0-37.0); MCV 91.8 fL (80.0-100.0); Mean Platelet Volume 6.8; Monocytes # (A) 0.6 k/uL (0-1.0); Monocytes % (A) 5 %; Neutrophils # (A) 8.3 k/uL (1.3-7.7); Neutrophils % (A) 72 %; Platelet Count 331 k/uL (150-450); RBC 3.51 m/uL (4.30-5.90); WBC 11.5 k/uL (3.8-10.6)
[2018-09-18 19:29] VITALS: BP 126/80
--- NOTE | 2018-09-18 20:37 | P.PN ---
Progress Note - Text Progress Note Date: 09/18/18 Hospitalist interval note: A team called 640pm for groin bleeding Nursing report that patient was bleeding and possibly codeine. Immediately proceeded to room. Arrived to 2 nurses already holding pressure on the left groin. Patient awake alert and talking. Blood pressure was stable. Report given that patient had sudden onset bleeding from left groin. He had previously had a fem-fem bypass with stent placement approximately 2 weeks ago. That groin slight had been purposely open to relieve a hematoma approximately 10 days ago. Patient with a wound infection containing Pseudomonas and enterococcus along with a bacteremia of Pseudomonas. Pressure was maintained at all times. Patient's blood pressure remained stable. Dr. Layne was immediately contacted and proceeded to the hospital. While he was in route. The patient was emergently transferred to the ICU. He received 1L of IVF at [facility]. Anesthesia on-call placed a right subclavian line. This was unable to be confirmed on chest x-ray as we could not lift the patient off the bed to place a backboard under him. 2 units of cross match blood were ordered and were placed in the room and were on hold. Dr. Layne arrived and placed pressure directly on the right site. Dr. Cool of vascular surgery was contacted and plans were made to transport the patient to [facility] for definitive management. Patient remained alert, talking, and cooperative. His vital signs remained stable. EMS arrived and the patient left the building at approximately 2004. He was sent with 2 units of uncrossed matched blood incase it was emergently needed enroute. Dr. Layne accompanied the patient in the rig to [facility]. I did call report to the ED attending at [place] so she was aware of the patient. was informed of transport to [place] by LAUREN Drake. Patient was transported with all belongings. His SBP was 136 and HR was 92 or transport. A total of 60 minutes of critical care time was spent on the complex unstable patient.
--- NOTE | 2018-09-18 21:00 | P.DS ---
Providers Date of admission: 09/15/18 11:50 Expected date of discharge: 09/18/18 Attending physician: Sherry Garcia DO Consults: 09/15/18 13:05 Consult Physician Routine Consulting Provider: Jose Meza Consult Reason/Comments: infection Do you want consulting provider notified?: Yes Consult Physician Routine Consulting Provider: Sammy Layne Consult Reason/Comments: left injuinal non healing wound Do you want consulting provider notified?: Yes 09/18/18 11:45 Consult Physician Routine Consulting Provider: Brett Atkinson Consult Reason/Comments: Joint effusion, possible septic arthritis, joint aspiration Do you want consulting provider notified?: Yes, Notify in am Primary care physician: [facility] Hospital Course: Discharge Diagnosis: 1. femoral- femoral bypass graft rupture 2. Pseudomonas bacteremia 3. Pseudomonas and enterococcus infection of nonhealing surgical wound left groin 4. Possible septic arthritis with left knee pain and joint effusion status post arthrocentesis 5. Peripheral arterial disease 6. Left sided- pneumonia 7. Constipation 8. dehydration with hyponatremia. Hospital Course: Patient is a 78-year-old male with a past medical history of peripheral arterial disease, claudication, phlebitis, and abdominal aortic aneurysm who presented as a direct admission from Dr. Layne's office. 2 weeks ago he underwent a fem-fem bypass with stent placement at [facility]. He then developed a left groin hematoma and had it drained approximately one week ago. He presented to the office 09/15 with complaints of fever, myalgia, vomiting and dizziness. Dr. Layne was concerned about possible underlying infection. He requested that we admit the patient for evaluation of possible underlying infection and have Dr. Meza see the patient. Patient had a urinalysis that was negative. Chest x-ray showed possible left-sided pneumonia. He was started on Rocephin and Zithromax. Dr. Meza evaluated the patient and added a wound culture. Blood culture grew pseudomonas and wound culture was growing multiple organisms. He developed left knee pain and joint effusion, CT showed mild effusion. Concern is for septic arthritis. On the morning of 09/18 he underwent bedside arthrocentesis of the knee to evaluate for possible septic arthritis. On the evening of 09/18 and was called due to sudden onset of bleeding. Nursing report that patient was bleeding and possibly codeine. Immediately proceeded to room. Arrived to 2 nurses already holding pressure on the left groin. Patient awake alert and talking. Blood pressure was stable. Report given that patient had sudden onset bleeding from left groin. He had previously had a fem-fem bypass with stent placement approximately 2 weeks ago. That groin site had been purposely open to relieve a hematoma approximately 10 days ago. Patient with a wound infection containing Pseudomonas and enterococcus along with a bacteremia of Pseudomonas. Pressure was maintained at all times. Patient's blood pressure remained stable. Dr. Layne was immediately contacted and proceeded to the hospital. While he was in route. The patient was emergently transferred to the ICU. He received 1L of IVF at [facility] [place]. Anesthesia on-call placed a right subclavian line. This was unable to be confirmed on chest x-ray as we could not lift the patient off the bed to place a backboard under him. 2 units of cross matched blood were ordered and were placed in the room as a precaution if needed emergently, He was typed and screened however typed blood was not available when the patient left the patient hospital. Dr. Layne arrived and placed pressure directly on the right site. Dr. Cool of vascular surgery was contacted and plans were made to transport the patient to [facility] for definitive management. Patient remained alert, talking, and cooperative. His vital signs remained stable. EMS arrived and the patient left the building at approximately 2004. He was sent with 2 units of uncrossed matched blood incase it was emergently needed enroute. Dr. Layne accompanied the patient in the EMS rig to [facility]. I did call report to the ED attending at [facility] so she was aware of the patient. was informed of transport to [place] by LAUREN Drake. Patient was transported with all belongings. His SBP was 136 and HR was 92 or transport. Patient seen and examined at bedside.complained of left groin pain from pressure. No chest pain SOB, light headed, dizziness. Vital signs reviewed and stable. General: ill apppearing, Moderate distress, appears at stated age Derm: warm, diaphoretic Head: atraumatic, normocephalic, symmetric Cardiovascular: S1S2 reg, no murmur, positive posterior tibial pulse bilateral, Lungs: CTA bilateral, no rhonchi, no rales , no accessory muscle use Ext: no gross muscle atrophy, no edema, no contractures, + dopplerable pulse left foot Neuro: CN II-XI grossly intact, no focal neuro deficits Psych: Alert, oriented, appropriate affect A total of 35 minutes of time were spent preparing this complex discharge summary . Pertinent Studies: CT left knee pain- no fracture seen, left knee joint effusion Echo- 55-60% Patient Condition at Discharge: Critical Plan - Discharge Summary Discharge Rx Participant: No New Discharge Prescriptions: No Action Polyethylene Glycol 3350 [Miralax] 17 gm PO DAILY Multivitamins, Thera [Multivitamin (formulary)] 1 tab PO DAILY [place]-3 Fatty Acids/Fish Oil [Fish Oil 1,000 mg Softgel] 1 cap PO DAILY Cinnamon Bark [Cinnamon] 1,000 mg PO DAILY Atorvastatin [Lipitor] 20 mg PO HS Turmeric Root Extract [Turmeric] 500 mg PO DAILY Clopidogrel [Plavix] 75 mg PO DAILY Discharge Medication List Cinnamon Bark [Cinnamon] 1,000 mg PO DAILY 08/08/18 [History] Multivitamins, Thera [Multivitamin (formulary)] 1 tab PO DAILY 08/08/18 [History ] [place]-3 Fatty Acids/Fish Oil [Fish Oil 1,000 mg Softgel] 1 cap PO DAILY [History] Polyethylene Glycol 3350 [Miralax] 17 gm PO DAILY 08/08/18 [History] Atorvastatin [Lipitor] 20 mg PO HS 09/15/18 [History] Clopidogrel [Plavix] 75 mg PO DAILY 09/15/18 [History] Turmeric Root Extract [Turmeric] 500 mg PO DAILY 09/15/18 [History] Follow up Appointment(s)/Referral(s): [facility], [NON-STAFF] - As Needed
--- NOTE | 2018-09-22 12:48 | CDI ---
Documentation Clarification Form Date: 10/07/18 From: Judy Syed Phone: If questions, call Toya Hunt @ Admit Date: 09/15/2018 11:50:00 AM Patient Name: Frank Mendoza Visit Number: [id number] Discharge Date:09/18/18 ATTENTION: The Clinical Documentation Specialists (CDI) and [facility] Coding Staff appreciate your assistance in clarifying documentation. Please respond to the clarification below the line at the bottom and electronically sign. The CDI & [facility] Coding staff will review the response and follow-up if needed. Please note: Queries are made part of the Legal Health Record. If you have any questions, please contact the author of this message via ITS. Dr. Garcia, Your patient has the documented diagnosis of Pseudomonas and enterococcus infection of nonhealing surgical wound left groin status post fem-fem bypass. Ortho consult 09/18 noted Infected graft. History/Risk Factors: He then developed a left groin hematoma and had it drained approx. one week ago. Clinical Indicators: The left groin reveals evidence of the open ulceration from the recent surgical intervention. Groin shows no surrounding inflammation.The internal aspect of his wound is a little murky looking compared to admission. Treatment: IV antibiotics, elevation, half-strength peroxide and dressing changes Please clarify if the patient's post operative wound infection was likely or possibly: Fem-fem bypass graft infection, Deep incisional surgical site infection Superficial incisional site infection, Intraabdominal cavity or organ site infection, Other explanation of clinical findings (please specify) Unable to determine (no explanation for clinical findings) Please have Dr. Layne address the depth of the infection. It was a surgical site infections but I am unable to determined depth of infection. DWAIND
--- NOTE | 2018-10-12 14:49 | CDI ---
Documentation Clarification Form Date: 10/12/2018 From: Judy Syed Phone: If questions, call Toya Hunt, Gyroscopic Instrument Mechanic at [phone] Admit Date: 09/15/2018 11:50:00 AM Patient Name: Frank Mendoza Visit Number: [id number] Discharge Date: 09/18/18 ATTENTION: The Clinical Documentation Specialists (CDI) and [facility] Coding Staff appreciate your assistance in clarifying documentation. Please respond to the clarification below the line at the bottom and electronically sign. The CDI & [facility] Coding staff will review the response and follow-up if needed. Please note: Queries are made part of the Legal Health Record. If you have any questions, please contact the author of this message via ITS. Dr. Layne, Dr. Garcia asked us to refer this question to you. Documented diagnosis of Pseudomonas and enterococcus infection of nonhealing surgical wound left groin status post fem-fem bypass. Ortho consult 09/18 noted Infected graft. History/Risk Factors: developed a left groin hematoma and had it drained approximately one week ago. Clinical Indicators: The left groin reveals evidence of the open ulceration from the recent surgical intervention. Groin shows no surrounding inflammation.The internal aspect of his wound is a little murky looking compared to admission. Treatment: IV antibiotics, elevation, half-strength peroxide and dressing changes Please clarify if the patient's post operative wound infection was likely or possibly: Fem-fem bypass graft infection, Deep incisional surgical site infection Superficial incisional site infection, Intraabdominal cavity or organ site infection, Other explanation of clinical findings (please specify) Unable to determine (no explanation for clinical findings) This is a deep incisional surgical site infection MTDD
== END 2018-09-18 20:30 | disposition short-term general hospital, planned readmission (82) | DRG 862 ==
LOC: 4SSUR 11:50 → 2SICU 09-18 18:59
PROVIDERS: ADMIT Internal Medicine; ATTEND Internal Medicine
PROC: 30243N1 Transfusion of Nonautologous Red Blood Cells into Central Vein, Percutaneous Approach (ICD-10-PCS; 2018-09-17)
PROC: 05H533Z Insertion of Infusion Device into Right Subclavian Vein, Percutaneous Approach (ICD-10-PCS; 2018-09-17)
PROC: 0S9D3ZX Drainage of Left Knee Joint, Percutaneous Approach, Diagnostic (ICD-10-PCS; principal; 2018-09-18)
DX: T81.42XA Infection following a procedure, deep incisional surgical site, initial encounter (principal); J18.1 Lobar pneumonia, unspecified organism; M00.9 Pyogenic arthritis, unspecified; E87.1 Hypo-osmolality and hyponatremia; J44.0 Chronic obstructive pulmonary disease with (acute) lower respiratory infection; R78.81 Bacteremia; T82.392A Other mechanical complication of femoral arterial graft (bypass), initial encounter; I97.618 Postprocedural hemorrhage of a circulatory system organ or structure following other circulatory system procedure; B18.8 Other chronic viral hepatitis; E86.0 Dehydration; Z66 Do not resuscitate; Y83.2 Surgical operation with anastomosis, bypass or graft as the cause of abnormal reaction of the patient, or of later complication, without mention of misadventure at the time of the procedure; Z96.652 Presence of left artificial knee joint; M25.462 Effusion, left knee; B95.2 Enterococcus as the cause of diseases classified elsewhere; B96.5 Pseudomonas (aeruginosa) (mallei) (pseudomallei) as the cause of diseases classified elsewhere; K59.00 Constipation, unspecified; I73.9 Peripheral vascular disease, unspecified; Z79.02 Long term (current) use of antithrombotics/antiplatelets; Z96.651 Presence of right artificial knee joint; Z86.72 Personal history of thrombophlebitis; M19.90 Unspecified osteoarthritis, unspecified site; I71.4 Abdominal aortic aneurysm, without rupture; Z87.891 Personal history of nicotine dependence; Z80.8 Family history of malignant neoplasm of other organs or systems; Z79.01 Long term (current) use of anticoagulants; Z79.899 Other long term (current) drug therapy
CPT/HCPCS: 71045; 80048; 80053; 81001; 83735; 85025; 85027; 86850; 86900; 86901; 86920; 87040; 87070; 87077; 87186; 87205; 87502; 89050; 89060; 93005; 93306; 94640